=== PATIENT | male | born 1990 | race Caucasian/White ===

== ENCOUNTER 2023-03-29 12:49 | Emergency (ER) | payer BC, SELFPAY ==
[2023-03-29 12:53] VITALS: BP 132/82; PULSE 95; RESP 18; TEMP 36.2; O2SAT 97; BMI 24.4
--- NOTE | 2023-03-29 20:25 | ED.WOUNDLAC ---
HPI - Wound/Laceration General Chief Complaint: Laceration/Wound Stated Complaint: Head laceration, hit head with drill Time Seen by Provider: 03/29/23 12:58 History of Present Illness HPI narrative: 32-year-old man presenting to the emergency department after cutting his right brow while trying to drill with an electric drill in the rain. Seems to have slipped and the battery and struck him in the right eyebrow. No loss of consciousness no complaint of neck or back pain. No nausea. Has managed to mostly controlled bleeding. No visual disturbance. Notes numerous lacerations in seems nonplussed about this one. Related Data Home Medications Medication Instructions Recorded Confirmed No Known Home Medications 03/29/23 03/29/23 Allergies Allergy/AdvReac Type Severity Reaction Status Date / Time No Known Drug Allergies Allergy Verified 03/29/23 12:56 Review of Systems Status of ROS: Reports: 6 or more systems reviewed and unremarkable except as noted in History and below PFSH PFS Social History Smoking Status: Never smoker How often do you have a drink containing alcohol: monthly or less AUDIT-C Alcohol total score: 1 Non-prescribed substance use: denies use service: No Exam Narrative: Exam Narrative: Pleasant. Of good humor. NAD. Cranial nerves 2-12 intact. Eyebrow musculature does not appear to be impacted here. There is a little over 1.5 cm laceration gapping in the lateral aspect of the right eyebrow extending over the ridge toward the upper aspect of the eyelid. Bleeds a little when I manipulate it. Neck appears supple. Const: Vital Signs, click to edit/add: Vital Signs - 24 hr 03/29/23 12:53 Temperature 97.1 F L Pulse Rate [Right Pulse Oximeter] 95 Respiratory Rate 18 Blood Pressure [Ri ght Upper Arm] 132/82 Pulse Oximetry 97 Oxygen Delivery Me thod Room Air Documenting provider has reviewed patient's vital signs: yes Course Vital Signs Vital signs: Initial Vital Signs Temperature 97.1 F L 03/29/23 12:53 Temperature Source Temporal Artery Scan 03/29/23 12:53 Pulse Rate 95 03/29/23 12:53 Respiratory Rate 18 03/29/23 12:53 Blood Pressure 132/82 03/29/23 12:53 Blood Pressure Mean 98 03/29/23 12:53 Blood Pressure Position Sitting 03/29/23 12:53 Pulse Oximetry 97 03/29/23 12:53 Oxygen Delivery Method Room Air 03/29/23 12:53 Vital Signs Temperature 97.1 F L 03/29/23 12:53 Pulse Rate 95 03/29/23 12:53 Respiratory Rate 18 03/29/23 12:53 Blood Pressure 132/82 03/29/23 12:53 Pulse Oximetry 97 03/29/23 12:53 Oxygen Delivery Method Room Air 03/29/23 12:53 Temperature 97.1 F L 03/29/23 12:53 Pulse Rate 95 03/29/23 12:53 Respiratory Rate 18 03/29/23 12:53 Blood Pressure 132/82 03/29/23 12:53 Pulse Oximetry 97 03/29/23 12:53 Oxygen Delivery Method Room Air 03/29/23 12:53 MDM - Wound/Laceration MDM Narrative Medical decision making narrative: He does need suturing. Does not appear to be consistent with concussive type event nor is there any injury to the eye itself. Discuss repair. Would like to proceed just ?get 'er done? without anesthesia. I cleansed the area with Shur-Clens solution and closed nicely with 3-4 6-0 Ethilon sutures. Antibiotic ointment placed See patient discharge plan Discharge Plan Discharge Clinical Impression: Laceration of brow without complication, Closed head injury Patient Disposition: Home, Self-Care Condition: Improved Instructions: Laceration (ED) Additional Instructions: sutures out in 5 - 6 days. antibiotic ointment for 3 days. ok to get wet but try not to soak while sutures are in. for further scar reduction/wound healing if desired -- after the scab falls off, can apply daily vitamin e oil, emu oil or something like maderma or silicone-containing ointments or bandaids daily. especially protect from sun for the first 9 - 12 months. Watch for spreading redness after 2 days accompanied by heat, swelling, marked increase in pain, purulent drainage. Prescriptions: No Action No Known Home Medications Stand Alone Forms: MyHealth Info Instructions
== END 2023-03-29 13:36 | disposition home or self-care (01) ==
PROVIDERS: Emergency Provider Family Medicine
DX: S01.111A Laceration without foreign body of right eyelid and periocular area, initial encounter (principal); W01.198A Fall on same level from slipping, tripping and stumbling with subsequent striking against other object, initial encounter
CPT/HCPCS: 12011; 99284